=== PATIENT | male | born 2000 | race Caucasian/White ===

== ENCOUNTER 2024-07-10 23:18 | Emergency (ER) | payer BC, SELFPAY ==
[2024-07-10 23:23] VITALS: BP 138/92
[2024-07-10 23:36] VITALS: BMI 29.8
[2024-07-10 23:40] VITALS: BP 128/72
[2024-07-11] VITALS: BP 133/86
[2024-07-11 00:22] LABS: COVID-19 Antigen Negative (Negative)
--- NOTE | 2024-07-11 00:22 | ED.GENMED ---
History of Present Illness
General
Chief Complaint: Cold/Flu/URI Symptoms
Source: patient
Exam Limitations: none
Time Seen by Provider: 07/10/24 23:50
History of Present Illness
History of Present Illness:
This is a 23 year old male that comes in with c/o fever and body aches. States that on Wednesday he wake with an upper respiratory illness. States that everyone at his work has been sick. States that he had head congestion. On Wednesday he was
lethargic and this moved into his chest with some wheezing. States that he used a heating pad and took a hot shower. Today he tried going to work but came home early and took a nap from about 7'dawna. States that when he got up his body was ache and
he felt hot and cold. States that he had a fever of 103.8. States that he took NyQuil about 7pm. States that his chest feels congested and he has a cough. States that he is nauseated, has a headache and feels dizzy when he gets up to walk. States
that he has fever with chills. Denies any chest pain, SOB, abd pain, vomiting, diarrhea, urinary burning.
Past History
Past History
ED Past Medical History: Asthma; Negative HTN, Hypercholesterolemia or NIDDM
ED Past Surgical History: Tonsilectomy (and adenoids)
Social History
Tobacco: Non-smoker
Alcohol: Occasional
Drug: None
Personal: Single
Living: with family
Employment: Employed
Review of Systems
Review of Systems
All Other Systems: ROS reviewed and negative except as documented in HPI and ROS
Constitutional: Reports fever and chills
EENT: Reports no symptoms; Denies sore throat
Respiratory: Reports cough; Denies trouble breathing
Cardiac: Reports no symptoms; Denies chest pain
ABD/GI: Reports nausea; Denies abdominal pain, vomiting or diarrhea
: Reports no symptoms; Denies dysuria, frequency or urgency
Musculoskeletal: Reports no symptoms
Skin: Reports no symptoms
Neurological: Reports dizzy (when he stands up) and headache
Psychiatric: Reports no symptoms
Phy Exam
General Physical Exam
General Presentation: no apparent distress
General age: appears stated age
General Skin: warm and dry
General Habitus: normal
General Mental: alert
General Hydration: appears well hydrated
ENT Exam
ENT Exam: TM's normal, pharynx normal and neck supple
Eye Exam
Eye Exam: EOMI
Cardiovascular Exam
Cardiovascular Exam: no edema, no murmur, normal peripheral pulses and tachycardia
Pulmonary Exam
Pulmonary Exam: no respiratory distress, no rales, chest non tender, no crackles, no rhonchi and other (Dry cough noted with occasional exp wheeze heard)
Gastrointestinal Exam
Gastrointestinal Exam: normal bowel sounds, non tender, soft, no organomegaly, no pulsatile mass and non distended
Musculoskeletal Exam
Musculoskeletal Exam: full ROM and no edema
Skin Exam
Skin Exam: normal color, warm/dry, no rash and no petechia
Psychiatric Exam
Psychiatric Exam: normal mood/affect
Course
Orders/Labs/Results
Orders:
Orders
07/10/24 23:41
COVID-19 Antigen Urgent
Source: Nasal Swab
Influenza A+B Rapid Molecular Urgent
KRYSTAL Source: Nasal Swab
Specimen Description:
07/11/24 00:21
0.9% Sodium Chloride 1000 ml [Nss] 1,000 ml IV BOLUS
Ketorolac [Toradol] 30 mg IV NOW STA
07/11/24 00:22
CR Chest - 2 Views Urgent
Comment:
Reason For Exam: fever, cough
COVID and Influenza negative.
Vital Signs
Initial and Last Documented VS:
Initial Vital Signs
Temp Pulse Resp BP Pulse Ox
99.9 F 128 24 138/92 100
07/10/24 23:23 07/10/24 23:23 07/10/24 23:23 07/10/24 23:23 07/10/24 23:23
Last Documented Vital Signs
Temp Pulse Resp BP Pulse Ox
99.9 F 128 24 110/67 98
07/10/24 23:23 07/10/24 23:23 07/10/24 23:23 07/11/24 01:00 07/11/24 01:00
MDM/Problems Addressed
Differential Diagnosis Includes:
COVID, Influenza, PNA, Viral syndrome
MDM/Problems Addressed:
This is a 23 year old male that comes in with c/o fever and cough. State that he has been sick since Wednesday. tonight he had a fever of 103.8.
Will check COVID, Influenza, chest x-ray and give IV fluids and Toradol for his body aches.
Back into see patient. Explained that his chest x-ray shows lower lobe Pneumonia. Will start patient on antibiotics and give him his first dose here. Patient to increase his water intake to 8-8oz glasses daily. Tylenol and Ibuprofen for fever.
Follow up with the family doctor. Use his nebulizer for any wheezing. Return with increased SOB or any other concerns.
Chronic conditions affecting care: Asthma
Acute Exacerbation and/or Progression of Chronic Illness:
NA
*Pulse Oximetry
Patient hypoxic: no
*EKG
Interpreted by ED Provider?: NA
Rate: EKG- N/A
*Lath Tier Interpretation
Rate: Lath Tier- N/A
*Critical Care Note
Total Time (30-74mins, 75-104mins- exclusive of procedures): Not Applicable
ED Attending Note
-
Portions of this chart may have been created with voice recognition software.� Occasional wrong word or��sound alike� substitutions may have occurred due to the inherent limitations of voice recognition software.
Discharge Plan
Departure
Patient Disposition: Home (Routine Discharge)
Date of Disposition: 07/11/24
Time of Disposition: 01:17
Patient with high blood pressure during this ER visit?: No
Condition: Good
Covid-19: Negative COVID-19
Discharge Problem:
Lower lobe pneumonia
Instructions: Pneumonia, Adult (DC), Fever, Adult (DC)
Prescriptions:
New
azithromycin [Zithromax] 250 mg tablet
250 mg PO DAILY Qty: 4 0RF
albuterol sulfate 1.25 mg/3 mL solution for nebulization
1.25 mg inhalation Q4H PRN (Reason: shortness of breath or wheezing) Qty: 75 0RF
No Action
cetirizine 10 MG tablet
10 mg PO DAILY
beclomethasone dipropionate [Qvar] 8.7 GM aerosol
8.7 gm inhalation DAILY
montelukast 10 MG tablet
10 mg PO DAILY
ondansetron 4 MG tablet,disintegrating
4 mg PO TIDPRN PRN (Reason: nausea/vomiting) Qty: 5 0RF
Referrals:
Bobby Han MD [Family Provider] - Follow up in 10 days
Stand Alone Forms: Return to Work
Activity Restrictions/Additional Instructions:
As discussed, you are negative for COVID and Influenza. Your Chest x-ray appears to have a little Pneumonia at both bases. You have been given your first dose of antibiotic here and a prescription has been sent to your Pharmacy. Please use your
Nebulizer for any SOB of wheezing. A prescription for Albuterol has been sent to the pharmacy. Please increase your water intake to 8-8oz glasses daily. You may also use Tylenol 1000mg every 6 hours and alternate with Ibuprofen 600mg every 6 hours
with food for fever. Please stay home from work until you are fever free for 24 hours. IF YOU HAVE INCREASED SHORTNESS OF BREATH, OR YOU HAVE ANY OTHER CONCERNS PLEASE RETURN TO THE EMERGENCY ROOM.
Interventions
Interventions:
*Risk Screen - Suicide Last Done: 07/10/24 23:21
*General Assessment Last Done: 07/10/24 23:36
*Neglect/Abuse Screening Last Done: 07/10/24 23:21
ED- Fall Risk Assessment Last Done: 07/10/24 23:36
*ED COVID-19 Vaccine History Last Done: 07/10/24 23:36
ED- Pulmonary Assessment Last Done: 07/10/24 23:36
Discharge Date and Time
Print Language: MONTSERRATIAN
[2024-07-11] MEDS: TORADOL 30 MG IV (00:26)
[2024-07-11] MEDS: NSS 1000 IV (00:26)
[2024-07-11 01:00] VITALS: BP 110/67
[2024-07-11] MEDS: ZITHROMAX 500 MG PO (01:27)
== END 2024-07-11 01:32 | disposition home or self-care (01) ==
LOC: EMR 23:18
PROVIDERS: Student in an Organized Health Care Education/Training Program; EMERGENCY PHYSICIAN Emergency Medicine; FAMILY PHYSICIAN Family Medicine
DX: J18.9 Pneumonia, unspecified organism (principal); J45.909 Unspecified asthma, uncomplicated
CPT/HCPCS: 96374; 96361; 99284; 71046; 87502; 87811

== ENCOUNTER 2024-09-13 01:26 | Emergency (ER) | payer BC, SELFPAY ==
[2024-09-13 01:32] VITALS: BP 122/72
[2024-09-13 02:35] VITALS: BP 122/79; BMI 28.4
--- NOTE | 2024-09-13 02:56 | ED.GENMED ---
History of Present Illness
General
Chief Complaint: Cold/Flu/URI Symptoms
Source: patient
Exam Limitations: none
Time Seen by Provider: 09/13/24 02:47
History of Present Illness
History of Present Illness:
This is a 24 year old male that c/o feeling like he has the flu. States that yesterday morning he got up around9-10am like normal and he felt really tired. States that he went back to bed and slept to 1pm. States that he got up and he just felt off.
States that he took Day-Quil and went to work. States that he worked for 6-7 hours and he was feeling cold and has a cough so he went home. State that he took Night-Quil when he got home and slept for awhile. States that when he got up he had a temp
of 103. States that he was exposed to the flu on Wednesday. States that he feels SOB and his chest is tight. States that he has a headache and lightheaded when he stood up. Denies any shaking chills, chest pain, abd pain, nausea, vomiting, diarrhea,
urinary burning.
Past History
Past History
ED Past Medical History: Asthma; Negative HTN, Hypercholesterolemia or NIDDM
ED Past Surgical History: Tonsilectomy (and adenoids)
Social History
Tobacco: Smoker
Alcohol: Occasional
Drug: None
Personal: Single
Living: with family
Employment: Employed
Review of Systems
Review of Systems
All Other Systems: ROS reviewed and negative except as documented in HPI and ROS
Constitutional: Reports fever and fatigue; Denies chills
EENT: Reports no symptoms
Respiratory: Reports cough and trouble breathing
Cardiac: Reports other (Chest tightness)
: Reports no symptoms; Denies dysuria, frequency or urgency
Musculoskeletal: Reports no symptoms
Skin: Reports no symptoms
Neurological: Reports headache and other (Lightheaded when he stands up)
Psychiatric: Reports no symptoms
Phy Exam
General Physical Exam
General Presentation: no apparent distress
General age: appears stated age
General Skin: warm and dry
General Habitus: normal
General Mental: alert
General Hydration: appears well hydrated
ENT Exam
ENT Exam: TM's normal, pharynx normal and neck supple
Eye Exam
Eye Exam: EOMI
Cardiovascular Exam
Cardiovascular Exam: regular rate/rhythm, no edema and normal peripheral pulses
Pulmonary Exam
Pulmonary Exam: no rales, chest non tender, no crackles, no rhonchi, generalized wheezing (Insp and exp ) and other (Dry cough noted.)
Gastrointestinal Exam
Gastrointestinal Exam: normal bowel sounds, non tender, soft, no organomegaly, no pulsatile mass and non distended
Musculoskeletal Exam
Musculoskeletal Exam: full ROM and no edema
Skin Exam
Skin Exam: normal color, warm/dry, no rash and no petechia
Psychiatric Exam
Psychiatric Exam: normal mood/affect
Course
Orders/Labs/Results
Orders:
Orders
09/13/24 01:38
Influenza A+B Rapid Molecular Urgent
KRYSTAL Source: Nasal Swab
Specimen Description:
09/13/24 02:55
0.9% Sodium Chloride 1000 ml [Nss] 1,000 ml IV BOLUS
Dexamethasone Sod Phosphate [Decadron] 20 mg IV NOW STA
Ibuprofen [Motrin] 600 mg PO NOW STA
Ipratropium/Albuterol Sulfate [Duoneb] 3 ml INH R NOW ONE
Influenza A
Vital Signs
Initial and Last Documented VS:
Initial Vital Signs
Temp Pulse Resp BP Pulse Ox
101.4 F H 124 22 122/72 98
09/13/24 01:32 09/13/24 01:32 09/13/24 01:32 09/13/24 01:32 09/13/24 01:32
Last Documented Vital Signs
Temp Pulse Resp BP Pulse Ox
101.4 F H 106 22 122/79 98
09/13/24 01:32 09/13/24 02:35 09/13/24 01:32 09/13/24 02:35 09/13/24 02:35
MDM/Problems Addressed
Differential Diagnosis Includes:
Influenza, Viral syndrome. Asthma exacerbation. PNA
MDM/Problems Addressed:
This is a 24 year old male that comes in with c/o fever and SOB. States that his chest feels tight. States that he was around someone on Wednesday that had Influenza A.
Will give IV fluid. Steroid, Duo neb and Get Influenza.
Back into see patient. Explained that he has Influenza. A. Patient will also be given Tamiflu. Patient to increase his water intake to 8-8oz glasses daily. Use her Nebulizer at home as needed for wheezing. Explained that he has been given a steroid
here and will sent a prescription for a steroid for the next 3 days. Patient to follow up with the family doctor. Return with any concerns.
Chronic conditions affecting care: Asthma
Acute Exacerbation and/or Progression of Chronic Illness: Asthma
*Pulse Oximetry
Patient hypoxic: no
*EKG
Interpreted by ED Provider?: NA
Rate: EKG- N/A
*Cvor Nurse Interpretation
Rate: Cvor Nurse- N/A
*Critical Care Note
Total Time (30-74mins, 75-104mins- exclusive of procedures): Not Applicable
ED Attending Note
-
Portions of this chart may have been created with voice recognition software.� Occasional wrong word or��sound alike� substitutions may have occurred due to the inherent limitations of voice recognition software.
Discharge Plan
Departure
Patient Disposition: Home (Routine Discharge)
Date of Disposition: 09/13/24
Time of Disposition: 03:42
Patient with high blood pressure during this ER visit?: No
Condition: Good
Covid-19: Not Applicable
Discharge Problem:
Influenza A, Bilateral wheezing
Instructions: Flu in adults - Discharge instructions, Asthma in adults - Discharge instructions
Prescriptions:
New
oseltamivir [Tamiflu] 75 mg capsule
75 mg PO BID 5 Days Qty: 9 0RF
prednisone 20 mg tablet
40 mg PO DAILY Qty: 6 0RF
No Action
cetirizine 10 MG tablet
10 mg PO DAILY
beclomethasone dipropionate [Qvar] 8.7 GM aerosol
8.7 gm inhalation DAILY
montelukast 10 MG tablet
10 mg PO DAILY
ondansetron 4 MG tablet,disintegrating
4 mg PO TIDPRN PRN (Reason: nausea/vomiting) Qty: 5 0RF
azithromycin [Zithromax] 250 mg tablet
250 mg PO DAILY Qty: 4 0RF
albuterol sulfate 1.25 mg/3 mL solution for nebulization
1.25 mg inhalation Q4H PRN (Reason: shortness of breath or wheezing) Qty: 75 0RF
Referrals:
Bobby Han MD [Family Provider] - Call in 1-3 days for appt
Stand Alone Forms: Return to Work
Activity Restrictions/Additional Instructions:
As discussed, you have Influenza A. This is a viral syndrome. Please increase your water intake to 8-8oz glasses daily. You have had 2 prescription sent to your pharmacy. The first is for Tamiflu for the next 5 days. The second is for a steroid for
the next 3 days to help decrease the inflammation and help with the wheezing and chest tightness. Please use your Nebulizer as needed for wheezing and chest tightness. Please use Tylenol and alternate with Ibuprofen for the fever and body aches.
Follow up with the family doctor for recheck. You have been given a note for work. Please do not return until you are fever free for 24 hours. IF YOU HAVE INCREASED SHORTNESS OF BREATH, OR YOU HAVE ANY OTHER CONCERNS PLEASE RETURN TO THE EMERGENCY
ROOM.
Interventions
Interventions:
*Risk Screen - Suicide Last Done: 09/13/24 01:32
*General Assessment Last Done: 09/13/24 02:35
*Neglect/Abuse Screening Last Done: 09/13/24 01:32
ED- Fall Risk Assessment Last Done: 09/13/24 02:35
*ED COVID-19 Vaccine History Last Done: 09/13/24 02:35
ED- Pulmonary Assessment Last Done: 09/13/24 02:35
Discharge Date and Time
Print Language: ARGENT[place]
[2024-09-13] MEDS: NSS 1000 IV (03:14)
[2024-09-13] MEDS: MOTRIN 600 MG PO (03:14)
[2024-09-13] MEDS: DECADRON 20 MG IV (03:15)
[2024-09-13] MEDS: DUONEB 3 ML INH (03:23)
[2024-09-13] MEDS: TAMIFLU 75 MG PO (03:47)
[2024-09-13 04:00] VITALS: BP 114/66
[2024-09-13 04:55] VITALS: BP 109/58
== END 2024-09-13 05:01 | disposition home or self-care (01) ==
LOC: EMR 01:26
PROVIDERS: EMERGENCY PHYSICIAN Student in an Organized Health Care Education/Training Program; FAMILY PHYSICIAN Family Medicine
DX: J10.1 Influenza due to other identified influenza virus with other respiratory manifestations (principal); J45.909 Unspecified asthma, uncomplicated; F17.200 Nicotine dependence, unspecified, uncomplicated
CPT/HCPCS: 94640; 96374; 96361; 99284; 87502